=== PATIENT | female | born 1955 | race African-American/Black ===

== ENCOUNTER 2018-12-13 08:27 | Emergency (ER) | payer MEDICARE ==
--- NOTE | 2018-12-13 12:20 | ER Document Report ---
ED General - General Chief Complaint: Foot Injury Stated Complaint: FOOT PAIN Time Seen by Provider: 12/13/18 10:39 Primary Care Provider: PAVITHRA TANNER DPM [ACTIVE STAFF] - Follow up in 3-5 days (For podiatry follow up) SILVA RAMIREZ MD [ACTIVE STAFF] - Follow up in 3-5 days (for primary care follow up) TRAVEL OUTSIDE OF THE [place] IN LAST 30 DAYS: No - HPI Notes: 63-year-old female to the emergency department with complaints of possible right big toe infection. States that several days ago she was putting her toenails and she got them a little bit too closely. States that now she is been seeing a little bit of drainage from the toe is slightly tender. She is diabetic. She does not see a medical scientist. She has never had a toe ulcerations or toe amputations. Any fevers, chills, streaking redness, redness to the toe. - Related Data Allergies/Adverse Reactions: No Known Allergies Allergy (Verified 12/13/18 08:38) Past Medical History - Social History Smoking Status: Unknown if Ever Smoked Chew tobacco use (# tins/day): No Frequency of alcohol use: None Drug Abuse: None Family History: Reviewed & Not Pertinent Patient has suicidal ideation: No Patient has homicidal ideation: No - Past Medical History Cardiac Medical History: Reports: Hx Hypertension Endocrine Medical History: Reports: Hx Diabetes Mellitus Type 2 Renal/ Medical History: Denies: Hx Peritoneal Dialysis Past Surgical History: Reports: Hx Breast Surgery - L breast biopsy, Hx Tubal Ligation Review of Systems - Review of Systems Constitutional: denies: Chills, Fever EENT: No symptoms reported Cardiovascular: denies: Chest pain, Syncope, Dizziness, Lightheaded Respiratory: denies: Cough, Short of breath Gastrointestinal: denies: Abdominal pain, Diarrhea, Nausea, Vomiting Skin: Other - Cut to right big toe after cutting toenails Physical Exam - Vital signs Vitals: Temp Pulse Resp BP Pulse Ox 98.4 F 93 16 195/81 H 96 12/13/18 08:43 12/13/18 08:43 12/13/18 08:43 12/13/18 08:43 12/13/18 08:43 Interpretation: Normal - General General appearance: Appears well, Alert - HEENT Head: Normocephalic, Atraumatic Eyes: Normal Pupils: PERRL - Respiratory Respiratory status: No respiratory distress Chest status: Nontender Breath sounds: Normal Chest palpation: Normal - Cardiovascular Rhythm: Regular Heart sounds: Normal auscultation Murmur: No - Abdominal Inspection: Normal Distension: No distension Bowel sounds: Normal Tenderness: Nontender Organomegaly: No organomegaly - Extremities General upper extremity: Normal inspection, Nontender, Normal color, Normal ROM, Normal temperature General lower extremity: Normal inspection, Nontender, Normal color, Normal ROM, Normal temperature, Normal weight bearing, Other - See skin. No: Олег's sign - Neurological Neuro grossly intact: Yes Cognition: Normal Orientation: AAOx4 Sontag Coma Scale Eye Opening: Spontaneous [place] Coma Scale Verbal: Oriented [place] Coma Scale Motor: Obeys Commands [place] Coma Scale Total: 15 Speech: Normal Motor strength normal: LUE, RUE, LLE, RLE Sensory: Normal - Psychological Associated symptoms: Normal affect, Normal mood - Skin Skin Temperature: Warm Skin Moisture: Dry Skin Color: Normal, [place] Skin irregularity: Laceration - There is a small cut to end of the right big toe where patient has cut her nails too closely. She has no evidence of ingrown toenail. There is some mild drainage from the area but no evidence of ulceration, erythema, abscess, viola foul-smelling purulent discharge. She has no erythema streaking up onto the top of the foot or to the back leg Course - Vital Signs Vital signs: Temp Pulse Resp BP Pulse Ox 97.9 F 84 16 158/74 H 98 12/13/18 12:26 12/13/18 12:26 12/13/18 12:26 12/13/18 12:26 12/13/18 12:26 - Transfer of Care Notes: 12/13/18 impression: Infected abrasion to the right great toe from cutting toenails too closely. She has no fever, redness, swelling, ulceration, abscess. Do not think she needs further imaging, lab work. Since she is diabetic, will start on keflex and discharge home. She is UTD on her immunizations. Discharge - Discharge Clinical Impression: Toe abrasion, infected, HTN (hypertension) Condition: Good Disposition: HOME, SELF-CARE Instructions: Wound Infection ([facility]) Additional Instructions: Clean wound twice a day with warm soapy water, pat dry and then cover with dressing. Complete antibiotics. Follow up with primary care in one week. Call HEMALATHA Aponte in 2 days to update her about the wound. Return sooner if you develop a fever, streaking redness up the toe/foot, or any other complaints. Prescriptions: Cephalexin Monohydrate [Keflex 500 mg Capsule] 500 mg PO QID 10 Days #40 capsule Referrals: PAVITHRA TANNER DPM [ACTIVE STAFF] - Follow up in 3-5 days (For podiatry follow up) SILVA RAMIREZ MD [ACTIVE STAFF] - Follow up in 3-5 days (for primary care follow up)
[2018-12-13 12:28] VITALS: BP 158/74
== END 2018-12-13 12:39 | disposition home or self-care (01) ==
LOC: ER 08:27
DX: S90.411A Abrasion, right great toe, initial encounter (principal); L08.89 Other specified local infections of the skin and subcutaneous tissue; W27.8XXA Contact with other nonpowered hand tool, initial encounter; Y93.E8 Activity, other personal hygiene; I10 Essential (primary) hypertension; E11.9 Type 2 diabetes mellitus without complications; Z98.51 Tubal ligation status
CPT/HCPCS: 99283

== ENCOUNTER → 2020-01-09 | Day surgery (SDC) | payer MEDICARE ==
[~2020-01-09] MED LIST: LIDOCAINE 1%/EPINEPHRINE INJ 20 ML VIAL ONE; LIDOCAINE 2% INJ (20 MG/ML) 20 ML MDV ONE
== END ==
LOC: RAD 09:01
PROVIDERS: ATTEND Surgery
DX: N63.20 Unspecified lump in the left breast, unspecified quadrant (principal)
CPT/HCPCS: J3490

== ENCOUNTER 2020-03-11 08:14 | Day surgery (SDC) | payer MEDICARE ==
[2020-03-06 09:09] LABS: HEMATOCRIT 34.7 % (36.0-47.0); HEMOGLOBIN 11.4 g/dL (12.0-15.5); MEAN CORPUSCULAR HEMOGLOBIN 27.4 pg (27.0-33.4); MEAN CORPUSCULAR HGB CONC 32.8 g/dL (32.0-36.0); MEAN CORPUSCULAR VOLUME 84 fl (80-97); PLATELET COUNT 251 10^3/uL (150-450); RED BLOOD COUNT 4.15 10^6/uL (3.72-5.28); RED CELL DISTRIBUTION WIDTH 14.8 % (11.5-14.0); WHITE BLOOD COUNT 7.2 10^3/uL (4.0-10.5)
[2020-03-06 09:30] LABS: ANION GAP 11 (5-19); BLOOD UREA NITROGEN 23 mg/dL (7-20); CALCIUM 9.7 mg/dL (8.4-10.2); CARBON DIOXIDE 25 mmol/L (22-30); CHLORIDE 106 mmol/L (98-107); GLUCOSE 156 mg/dL (75-110); POTASSIUM 4.5 mmol/L (3.6-5.0)
--- NOTE | 2020-03-06 21:02 | EKG REPORT ---
SEVERITY:- ABNORMAL ECG - SINUS RHYTHM LVH WITH SECONDARY REPOLARIZATION ABNORMALITY CONSIDER ANTERIOR INFARCT : Confirmed by: Ubaldo Posadas 06-Mar-2020 21:01:49
[~2020-03-11 08:14] MED LIST changes: +CEFAZOLIN 1 GM/D5W RTU 1 GM/50 ML RTUPB IV PRN; +DEXAMETHASONE SOD PHOSPHATE INJ 4 MG/1 ML VIAL ONE; +FENTANYL CITRATE INJ/PF 250 MCG/5 ML AMPULE ONE; -LIDOCAINE 1%/EPINEPHRINE INJ 20 ML VIAL ONE; -LIDOCAINE 2% INJ (20 MG/ML) 20 ML MDV ONE; +MIDAZOLAM 2 MG/2 ML INJ ONE; +ONDANSETRON HCL INJ/PF 4 MG/2 ML SDV ONE; +PROPOFOL INJ 200 MG/20 ML VIAL IV ONE
[2020-03-11] MEDS ORDERED: LIDOCAINE 4% CREAM 5 GM TUBE ONE (08:16)
[2020-03-11] MEDS ORDERED: CEFAZOLIN 1 GM/D5W RTU 1 GM/50 ML RTUPB IV ONE (08:16)
[2020-03-11] MEDS ORDERED: MICROFIBRILLAR COLLAGEN 1 GM PACK ONE (10:07)
[2020-03-11] MEDS ORDERED: METHYLENE BLUE 50 MG/10 ML AMPULE ONE (10:07)
[2020-03-11] MEDS ORDERED: LIDOCAINE 1%/EPINEPHRINE INJ 20 ML VIAL ONE (10:07)
--- NOTE | 2020-03-11 11:30 | RADIOLOGY REPORT (SQ) ---
EXAM DESCRIPTION: NM LYMPHATICS/LYMPH GLANDS IMAGES COMPLETED DATE/TIME: 03/11/2020 10:43 am REASON FOR STUDY: BREAST CANCER C50.912 MALIGNANT NEOPLASM OF UNSPECIFIED SITE OF LEFT FEMAL COMPARISON: None. RADIONUCLIDE AND DOSE: 589 microcuries TC-99m tilmanocept - [employer]ek. The route of agent administration: Subcutaneous in the skin. TECHNIQUE: The skin of the left breast was prepped in sterile fashion. The radiopharmaceutical was administered in equally divided doses in the periareolar breast. LIMITATIONS: None. FINDINGS: Images demonstrate activity at the injection site. IMPRESSION: ADMINISTRATION OF RADIOPHARMACEUTICAL FOR SENTINEL LYMPH NODE EVALUATION. TECHNICAL DOCUMENTATION: JOB ID: [id number] 2010 [employer]- All Rights Reserved Reading location - IP/workstation name: [email or web address]
[2020-03-11] MEDS ORDERED: MEPERIDINE HCL/PF INJ 25 MG/1 ML DISP.SYRIN IV PRN (12:09)
[2020-03-11] MEDS ORDERED: FENTANYL CITRATE INJ/PF 100 MCG/2 ML AMPUL IV PRN ×3 (12:09)
[2020-03-11] MEDS ORDERED: DIPHENHYDRAMINE HCL 50 MG/ML VIAL IV PRN (12:09)
[2020-03-11] MEDS ORDERED: MORPHINE SULFATE 10 MG/ML INJ IV PRN (12:09)
[2020-03-11] MEDS ORDERED: PROMETHAZINE HCL INJ 25 MG/1 ML VIAL IV PRN ×2 (12:09)
[2020-03-11] MEDS ORDERED: OXYCODONE-ACETAMINOPHEN 5-325 MG TABLET PO PRN (12:09)
--- NOTE | 2020-03-11 13:01 | Discharge Summary ---
Discharge Summary (SDC) - Discharge Final Diagnosis: Left breast tumor suspicious for invasive carcinoma Date of Surgery: 03/11/20 Discharge Date: 03/11/20 Condition: Good Treatment or Instructions: May shower in 48 hours; allow Steri-Strips to fall off. Wear supportive bra as tolerated; may take Tylenol, Motrin, or prescribed non-narcotic. Excessive physical activity. Follow-up with Dr. Riley at [facility] in 1 to 2 weeks. Referrals: PIPER ESPINAL MD [Primary Care Provider] - Discharge Diet: As Tolerated Discharge Activity: Activity As Tolerated Home Care Assistance: None Needed Report the Following to Your Physician Immediately: Shortness of Breath, Increase in Pain, Fever over 101 Degrees
[2020-03-11] MEDS ORDERED: FENTANYL CITRATE INJ/PF 100 MCG/2 ML AMPUL ONE (13:03)
--- NOTE | 2020-03-11 13:11 | Operative Report ---
Operative Report DATE OF SURGERY: 03/11/20 PREOPERATIVE DIAGNOSIS: 1. Left breast tumor suspicious for invasive carcinoma. 2. Morbid obesity. 3. Hypertension. 4. Diabetes mellitus POSTOPERATIVE DIAGNOSIS: Same OPERATION: 1. Left breast lumpectomy using intraoperative ultrasound guidance. 2. Interpretation of specimen radiograph intraoperatively. 3. Dual mapping sentinel lymph node biopsy left axilla x2 SURGEON: SHANI RILEY ANESTHESIA: GA TISSUE REMOVED OR ALTERED: Left breast lump; 2 left axillary sentinel lymph nodes COMPLICATIONS: None ESTIMATED BLOOD LOSS: Scant INTRAOPERATIVE FINDINGS: See below PROCEDURE: The patient was seen in the preop holding area where the left breast was marked. Bedside neoprobe assessment of the axilla demonstrated increased uptake consistent with successful mapping. Patient was taken to the main operating room where general anesthesia was induced. Left arm was abducted, left breast exposed as well as the left axilla. The left breast was now injected with 1-1/2 cc of full-strength methylene blue, intradermally, at the 2 o'clock position of the left breast. Left breast was massaged, and the left breast and axilla were prepped and draped with Betadine Surgical plan and surgical timeout were conducted. We approached the left axilla first for the sentinel lymph node biopsy. There was an area of increased activity in the low axilla, specifically 2 areas in the low axilla by approximately 6 cm caudad to cephalad direction. Skin was anesthetized with plain lidocaine, 4 and half centimeter incision made with a 15 blade, and using the neoprobe for localization, 2 sentinel lymph nodes were identified. 1 in the low axilla was blue hot with an in vivo count of 20,000 933 and an ex vivo count of 27,147. Somewhat caudad to this sentinel lymph node, along the chest wall was the second blue hot lymph node with an in vivo count of 1266 and an ex vivo count of 29,808. Background counts were negligible. There was no other areas of increased radioactivity except in the right breast. We felt the sentinel lymph node biopsy portion of the operation was complete. We now brought the variable frequency linear transducer ultrasound onto the field. The previously biopsied, and clipped tumor approximately 8 cm from the nipple, 8 o'clock position was identified. Target lesion was medial to the previous lumpectomy in the ipsilateral breast at the 6 o'clock position. The skin was anesthetized 1% plain lidocaine, skin incised for length of approximately 5 cm in an horizontal fashion. Using ultrasound as a guide, a lumpectomy specimen was removed from the inner lower aspect of the right breast 2 include the target lesion. Dissection was performed with electrocautery, and fingers. The specimen was extracted from the right breast, marked with a short suture in the superior position long suture in the lateral position. It was placed on a Per dish and imaged with the specimen radiograph machine in the operating room and found to contain the tumor in the clip. Now, Dr. Riley broke scrub, and the specimen was personally taken by Dr. Riley to Dr. Jon, pathologist who inked the specimen, and sliced it horizontally and identified the tumor in the medial aspect of the lumpectomy specimen. Dr. Jon felt the margin was satisfactory and no further cavity margin was required. Dr. Mckee scrubbed back in, checked both left breast and left axillary wounds for bleeding there was none. Sponge and counts are correct. Wounds closed with 2 and 3-0 Vicryl benzoin and Steri-Strips. Patient tolerated the procedure well, extubated, taken recovery room in stable condition.
[2020-03-11 16:17] VITALS: BP 138/66
--- NOTE | 2020-03-12 12:25 | RADIOLOGY REPORT (SQ) ---
EXAM DESCRIPTION: BREAST SPECIMEN IMAGES COMPLETED DATE/TIME: 03/11/2020 1:58 pm REASON FOR STUDY: LEFT BREAST SPECIMEN IN THE OR C50.912 MALIGNANT NEOPLASM OF UNSPECIFIED SITE OF LEFT FEMAL COMPARISON: None. TECHNIQUE: Specimen radiograph from breast procedure performed in the operating room. LIMITATIONS: None. FINDINGS: Specimen radiograph from breast procedure performed in the operating room. Please see procedure note for details and final pathology. IMPRESSION: Specimen radiograph. TECHNICAL DOCUMENTATION: JOB ID: [id number] Reading location - IP/workstation name: [email or web address]
== END 2020-03-11 15:55 | disposition home or self-care (01) ==
LOC: OROUT 08:14
PROVIDERS: ATTEND Surgery
DX: C50.912 Malignant neoplasm of unspecified site of left female breast (principal); E11.9 Type 2 diabetes mellitus without complications; I10 Essential (primary) hypertension; E66.01 Morbid (severe) obesity due to excess calories; Z03.818 Encounter for observation for suspected exposure to other biological agents ruled out; Z79.899 Other long term (current) drug therapy; Z79.82 Long term (current) use of aspirin; Z79.84 Long term (current) use of oral hypoglycemic drugs
CPT/HCPCS: 93005; 36415 ×2; 82962; 84132; 85027; 80048; 88342 ×2; 88307 ×2; 78195; 93010; 01610; 76098; 19301; 38500; U0003; A9520; J2250; J0690; J1100; J3010 ×2; J3490 ×2; J2405; J2704; Q9968; C9803; 1610; 87635

== ENCOUNTER 2020-04-22 08:10 | Outpatient (CLI) | payer MEDICARE ==
[~2020-04-22 08:10] MED LIST changes: -CEFAZOLIN 1 GM/D5W RTU 1 GM/50 ML RTUPB IV PRN; +CYCLOPHOSPHAMIDE IV PRN; +DEXAMETHASONE 10 MG in NS 50 ML IV PRN; -DEXAMETHASONE SOD PHOSPHATE INJ 4 MG/1 ML VIAL ONE; +DIPHENHYDRAMINE 50 MG in NS 50 ML IV PRN; +DOCETAXEL IV PRN; +FAMOTIDINE 20 MG in NS 50 ML IV PRN; -FENTANYL CITRATE INJ/PF 250 MCG/5 ML AMPULE ONE; +FOSAPREPITANT 150 MG in NS 150 ML IV PRN; -MIDAZOLAM 2 MG/2 ML INJ ONE; +NORMAL SALINE 500 ML @ KVO IV PRN; +NORMAL SALINE IV PRN; -ONDANSETRON HCL INJ/PF 4 MG/2 ML SDV ONE; +PALONOSETRON 0.25 MG/5 ML VIAL IV PRN; -PROPOFOL INJ 200 MG/20 ML VIAL IV ONE
[2020-04-22 09:12] VITALS: BP 158/74
== END 2020-04-22 14:18 | disposition home or self-care (01) ==
LOC: II 08:10 → 5TH 08:12 → II 14:18
PROVIDERS: ATTEND Internal Medicine
DX: Z51.11 Encounter for antineoplastic chemotherapy (principal); C50.412 Malignant neoplasm of upper-outer quadrant of left female breast
CPT/HCPCS: 96413; 96367; 96375; 96417; J9070; J1200; J7050 ×2; S0028; J1100; J1453; J2469; J9171

== ENCOUNTER 2020-04-23 12:51 | Outpatient (CLI) | payer MEDICARE ==
[~2020-04-23 12:51] MED LIST changes: -CYCLOPHOSPHAMIDE IV PRN; -DEXAMETHASONE 10 MG in NS 50 ML IV PRN; -DIPHENHYDRAMINE 50 MG in NS 50 ML IV PRN; -DOCETAXEL IV PRN; -FAMOTIDINE 20 MG in NS 50 ML IV PRN; -FOSAPREPITANT 150 MG in NS 150 ML IV PRN; -NORMAL SALINE 500 ML @ KVO IV PRN; -NORMAL SALINE IV PRN; -PALONOSETRON 0.25 MG/5 ML VIAL IV PRN; +PEGFILGRASTIM-CBQV 6 MG/0.6 ML SYRINGE SUBCUT PRN
[2020-04-23 13:07] VITALS: BP 162/62
== END 2020-04-23 13:45 | disposition home or self-care (01) ==
LOC: II 12:51 → 5TH 12:54 → II 13:45
PROVIDERS: ATTEND Internal Medicine
DX: Z76.89 Persons encountering health services in other specified circumstances (principal); C50.412 Malignant neoplasm of upper-outer quadrant of left female breast
CPT/HCPCS: 96372; Q5111

== ENCOUNTER 2020-05-13 08:00 | Outpatient (CLI) | payer MEDICARE ==
[~2020-05-13 08:00] MED LIST changes: +CYCLOPHOSPHAMIDE IV PRN; +DEXAMETHASONE 10 MG in NS 50 ML IV PRN; +DIPHENHYDRAMINE 50 MG in NS 50 ML IV PRN; +DOCETAXEL IV PRN; +FAMOTIDINE 20 MG in NS 50 ML IV PRN; +NORMAL SALINE 500 ML @ KVO IV PRN; +NORMAL SALINE IV PRN; +PALONOSETRON 0.25 MG/5 ML VIAL IV PRN; -PEGFILGRASTIM-CBQV 6 MG/0.6 ML SYRINGE SUBCUT PRN
[2020-05-13 11:41] VITALS: BP 161/81
[2020-05-15] MEDS ORDERED: FOSAPREPITANT 150 MG in NS 150 ML IV PRN (08:00)
== END 2020-05-13 13:26 | disposition home or self-care (01) ==
LOC: II 08:00 → 5TH 08:03 → II 13:26
PROVIDERS: ATTEND Internal Medicine
DX: Z51.11 Encounter for antineoplastic chemotherapy (principal); C50.412 Malignant neoplasm of upper-outer quadrant of left female breast
CPT/HCPCS: 96413; 96367; 96375; 96417; J9070; J1200; J7050; S0028; J1100; J2469; J9171; J1453

== ENCOUNTER 2020-05-15 08:20 | Outpatient (CLI) | payer MEDICARE ==
[~2020-05-15 08:20] MED LIST changes: -CYCLOPHOSPHAMIDE IV PRN; -DEXAMETHASONE 10 MG in NS 50 ML IV PRN; -DIPHENHYDRAMINE 50 MG in NS 50 ML IV PRN; -DOCETAXEL IV PRN; -FAMOTIDINE 20 MG in NS 50 ML IV PRN; -NORMAL SALINE 500 ML @ KVO IV PRN; -NORMAL SALINE IV PRN; -PALONOSETRON 0.25 MG/5 ML VIAL IV PRN; +PEGFILGRASTIM-CBQV 6 MG/0.6 ML SYRINGE SUBCUT PRN
[2020-05-15 08:48] VITALS: BP 180/69
== END 2020-05-15 08:56 | disposition home or self-care (01) ==
LOC: II 08:20 → 5TH 08:25 → II 08:56
PROVIDERS: ATTEND Internal Medicine
DX: Z76.89 Persons encountering health services in other specified circumstances (principal); C50.412 Malignant neoplasm of upper-outer quadrant of left female breast
CPT/HCPCS: 96372; Q5111

== ENCOUNTER 2020-06-03 07:55 | Outpatient (CLI) | payer MEDICARE, OTHER ==
[~2020-06-03 07:55] MED LIST changes: +CYCLOPHOSPHAMIDE IV PRN; +DEXAMETHASONE 10 MG in NS 50 ML IV PRN; +DIPHENHYDRAMINE 50 MG in NS 50 ML IV PRN; +DOCETAXEL IV PRN; +FAMOTIDINE 20 MG in NS 50 ML IV PRN; +FOSAPREPITANT 150 MG in NS 150 ML IV PRN; +NORMAL SALINE 500 ML @ KVO IV PRN; +NORMAL SALINE IV PRN; +PALONOSETRON 0.25 MG/5 ML VIAL IV PRN; -PEGFILGRASTIM-CBQV 6 MG/0.6 ML SYRINGE SUBCUT PRN
[2020-06-03 09:13] VITALS: BP 131/73
[2020-06-03] MEDS: MAGNESIUM SULFATE 1 GM/D5W 100 ML IV PRN ×2 (09:39→10:41)
== END 2020-06-03 13:15 | disposition home or self-care (01) ==
LOC: II 07:55 → 5TH 07:59 → II 13:15
PROVIDERS: ATTEND Internal Medicine
DX: Z51.11 Encounter for antineoplastic chemotherapy (principal); C50.412 Malignant neoplasm of upper-outer quadrant of left female breast
CPT/HCPCS: 96413; 96367; 96375; 96417; J9070; J1200; J3475; J7050 ×2; S0028; J1100; J1453; J2469; J9171

== ENCOUNTER 2020-06-04 12:32 | Outpatient (CLI) | payer MEDICARE, OTHER ==
[~2020-06-04 12:32] MED LIST changes: -CYCLOPHOSPHAMIDE IV PRN; -DEXAMETHASONE 10 MG in NS 50 ML IV PRN; -DIPHENHYDRAMINE 50 MG in NS 50 ML IV PRN; -DOCETAXEL IV PRN; -FAMOTIDINE 20 MG in NS 50 ML IV PRN; -FOSAPREPITANT 150 MG in NS 150 ML IV PRN; -NORMAL SALINE 500 ML @ KVO IV PRN; -NORMAL SALINE IV PRN; -PALONOSETRON 0.25 MG/5 ML VIAL IV PRN; +PEGFILGRASTIM-CBQV 6 MG/0.6 ML SYRINGE SUBCUT PRN
[2020-06-04 12:45] VITALS: BP 178/85
== END 2020-06-04 12:54 | disposition home or self-care (01) ==
LOC: II 12:32 → 5TH 12:33 → II 12:54
PROVIDERS: ATTEND Internal Medicine
DX: Z51.11 Encounter for antineoplastic chemotherapy (principal); C50.412 Malignant neoplasm of upper-outer quadrant of left female breast
CPT/HCPCS: 96372; Q5111

== ENCOUNTER 2020-06-24 07:55 | Outpatient (CLI) | payer MEDICARE, OTHER ==
[~2020-06-24 07:55] MED LIST changes: +CYCLOPHOSPHAMIDE IV PRN; +DEXAMETHASONE 10 MG in NS 50 ML IV PRN; +DIPHENHYDRAMINE 50 MG in NS 50 ML IV PRN; +DOCETAXEL IV PRN; +FAMOTIDINE 20 MG in NS 50 ML IV PRN; +FOSAPREPITANT 150 MG in NS 150 ML IV PRN; +NORMAL SALINE 500 ML @ KVO IV PRN; +NORMAL SALINE IV PRN; +PALONOSETRON 0.25 MG/5 ML VIAL IV PRN; -PEGFILGRASTIM-CBQV 6 MG/0.6 ML SYRINGE SUBCUT PRN
[2020-06-24 08:51] VITALS: BP 137/70
[2020-06-24] MEDS: MAGNESIUM SULFATE 1 GM/D5W 100 ML IV PRN ×2 (09:00→13:59)
== END 2020-06-24 15:56 | disposition home or self-care (01) ==
LOC: II 07:55 → 5TH 08:47 → II 15:56
PROVIDERS: ATTEND Internal Medicine
DX: Z51.11 Encounter for antineoplastic chemotherapy (principal); C50.412 Malignant neoplasm of upper-outer quadrant of left female breast
CPT/HCPCS: 96413; 96367; 96375; 96417; J9070; J1200; J3475; J7050 ×2; S0028; J1100; J1453; J2469; J9171

== ENCOUNTER 2020-06-25 13:54 | Outpatient (CLI) | payer MEDICARE, OTHER ==
[~2020-06-25 13:54] MED LIST changes: -CYCLOPHOSPHAMIDE IV PRN; -DEXAMETHASONE 10 MG in NS 50 ML IV PRN; -DIPHENHYDRAMINE 50 MG in NS 50 ML IV PRN; -DOCETAXEL IV PRN; -FAMOTIDINE 20 MG in NS 50 ML IV PRN; -FOSAPREPITANT 150 MG in NS 150 ML IV PRN; -NORMAL SALINE 500 ML @ KVO IV PRN; -NORMAL SALINE IV PRN; -PALONOSETRON 0.25 MG/5 ML VIAL IV PRN; +PEGFILGRASTIM-CBQV 6 MG/0.6 ML SYRINGE SUBCUT PRN
[2020-06-25 14:11] VITALS: BP 149/65
== END 2020-06-25 14:16 | disposition home or self-care (01) ==
LOC: II 13:54 → 5TH 13:57 → II 14:16
PROVIDERS: ATTEND Internal Medicine
DX: Z76.89 Persons encountering health services in other specified circumstances (principal); C50.412 Malignant neoplasm of upper-outer quadrant of left female breast
CPT/HCPCS: 96372; Q5111